=== PATIENT | male | born 1980 | race Caucasian/White ===

== ENCOUNTER 2018-12-05 13:19 | Observation (INO) | payer SELFPAY ==
[~2018-12-05] VITALS: Ht 203.2 cm; Wt 150.0 kg
[2018-12-05] MEDS ORDERED: ELIQUIS5 MG PO (13:35)
[2018-12-05] MEDS ORDERED: ISOSORBIDE MONO30 M1 PO (13:35)
[2018-12-05] MEDS ORDERED: ASPIRIN81 MG PO (13:35)
[2018-12-05] MEDS ORDERED: PLAVIX75 MG PO (13:35)
[2018-12-05] MEDS ORDERED: LIPITOR40 MG PO (13:36)
[2018-12-05] MEDS ORDERED: FERROUS SULFAT325 MG PO (13:36)
[2018-12-05] MEDS ORDERED: ZESTRIL20 MG PO (13:36)
[2018-12-05] MEDS ORDERED: AMIODARONE HCL200 MG PO (13:36)
[2018-12-05] MEDS ORDERED: ATIVAN2 MG PO (13:37)
[2018-12-05] MEDS ORDERED: TOPROL XL100 MG PO (13:37)
[2018-12-05] MEDS ORDERED: ZANAFLEX4 MG PO (13:38)
[2018-12-05] MEDS ORDERED: ROXICODONE30 MG PO (13:38)
[2018-12-05] MEDS ORDERED: AMBIEN10 MG PO (13:39)
[2018-12-05] MEDS ORDERED: FENTANYL PATCH (13:39)
[2018-12-05] MEDS ORDERED: MULTI-DAY VITAM1 TAB PO (13:40)
[2018-12-05] MEDS ORDERED: COLACE100 MG PO (13:40)
[2018-12-05] MEDS ORDERED: NITROQUICK0.4 MG SL (13:40)
[2018-12-05 14:16] VITALS: BP 128/78
[2018-12-05 14:22] LABS: BASOPHILS 0.4 % (0-2); EOSINOPHILS 1.1 % (0-7); HEMATOCRIT 32.3 % (42.0-54.0); HEMOGLOBIN 10.1 g/dL (13.5-17.5); IMMATURE GRANULOCYTES 0.2 % (0-5); LYMPHOCYTES 18.8 % (15-50); MCHC 31.3 g/dL (31.0-37.0); MCV 83.2 fL (80.0-100.0); MEAN PLATELET VOLUME 10.5 fL (7.4-10.4); MONOCYTES 5.9 % (2-11); NEUTROPHILS 73.6 % (40-80); PLATELET COUNT 224 10x3/uL (130-400); RBC 3.88 10x6/uL (4.20-6.10); RDW 14.7 % (11.5-14.5); WBC 4.7 10x3/uL (4.8-10.8)
[2018-12-05 14:23] LABS: APTT 32.1 SECONDS (22.8-39.4); INR 1.28 (0.85-1.17); PROTIME 15.4 SECONDS (11.6-15.0)
[2018-12-05 14:24] LABS: D-DIMER-QUANTITATIVE < 0.27 ug/mLFEU (0.20-0.54)
[2018-12-05 14:35] LABS: ALBUMIN 3.3 g/dL (3.4-5.0); ALKALINE PHOSPHATASE 67 U/L (46-116); ALT (SGPT) 16 U/L (10-68); BILIRUBIN - TOTAL 0.43 mg/dL (0.2-1.3); CALC OSMOLALITY 288 mosm/kg (275-300); CALCIUM 8.3 mg/dL (8.5-10.1); CARBON DIOXIDE 26.8 mmol/L (21.0-32.0); CHLORIDE - SERUM 106 mmol/L (98-107); CREATININE - SERUM 1.1 mg/dL (0.6-1.3); GLUCOSE 99 mg/dL (74-106); POTASSIUM - SERUM 4.2 mmol/L (3.5-5.1); PROTEIN - SERUM 6.5 g/dL (6.4-8.2); SODIUM 144 mmol/L (136-145); UREA NITROGEN 18 mg/dL (7-18); eGFR NON AFRICAN AMERICAN 79 mL/min (90-120)
[2018-12-05 14:50] LABS: CKMB 0.9 U/L (0.0-3.6)
--- NOTE | 2018-12-05 15:10 | NUR ---
PT STABLE, CALL LIGHT WITHIN REACH, DENIES NEEDS, WILL CONTINUE TO MONITOR. PT WANTED TO WAIT ON BENEDRYL AT THIS TIME
[2018-12-05 15:11] LABS: TROPONIN-I 0.544 ng/mL (0.000-0.060)
--- NOTE | 2018-12-05 15:12 | NUR ---
CRITICAL LAB CALLED [facility] 0.544 DR HALL AWARE
[2018-12-05 15:20] VITALS: BP 127/74
--- NOTE | 2018-12-05 15:44 | NUR ---
CORE DRILLER CALLED TO HAVE ED PREP PATIENT FOR CATH. DISCUSSED WITH PATIENT. HE IS REFUSING AT THIS TIME. CORE DRILLER AWARE. DR HALL SPEAKING WITH PATIENT AT THIS TIME
[2018-12-05 17:30] VITALS: BP 129/77
--- NOTE | 2018-12-05 18:07 | NUR ---
PER DR HALL, DR PINZON HAS BEEN CALLED AND OK TO CONTINUE ALL HOME MEDS. PT REQUESTING HIS HOME PAIN MEDICATION AT THIS TIME. FLOOR TO REVIEW HOME MED LIST AND ADD. AT THIS TIME DR PINZON OK TO GIVE PATIENT HOME PAIN MEDS. PT ALSO NPO AFTER MIDNIGHT, CATH TO BE DONE TOMORROW. CHARGE NURSE AND ED PROGRESSIVE CARE MANAGER AWARE OF THE CONVERSATION DR PINZON AND ISABEL HAVE HAD
[2018-12-05 18:31] LABS: CKMB 0.7 U/L (0.0-3.6); CREATINE KINASE 54 UL (21-232)
[2018-12-05 19:15] VITALS: BP 132/75
[2018-12-05 20:00] VITALS: BP 121/73
--- NOTE | 2018-12-05 20:14 | NUR ---
RECEIVED PATIENT FROM ER VIA WHEELCHAIR. PATIENT IS ALERT AND ORIENTED RESTING COMFORTABLY. RESPIRATIONS ARE EVEN AND UNLABORED. NO S/S OF DISTRESS. NO C/O PAIN. DENIES NEEDS AT THIS TIME. CALL LIGHT WITHIN REACH. WILL CPOC.
[2018-12-05 23:34] LABS: CREATINE KINASE 59 UL (21-232)
[2018-12-05 23:37] LABS: TROPONIN-I 0.451 ng/mL (0.000-0.060)
[2018-12-06 01:52] VITALS: BP 121/73; Ht 203.2 cm; Wt 150.0 kg
--- NOTE | 2018-12-06 02:57 | NUR ---
PATIENT ASKED WHEN HIS HEART CATH WAS GOING TO BE IN THE AM. PATIENT SAID "IF IT IS BEFORE NOON HE WILL SIGN OUT AMA."
--- NOTE | 2018-12-06 05:14 | NUR ---
NO C/O OF CHEST PAIN SINCE ARRIVING TO FLOOR. PATIENT RESTING COMFORTABLY IN BED. NO S/S OF DISTRESS. RESPIRATIONS ARE EVEN AND UNLABORED. CALL LIGHT WITHIN REACH. WILL CPOC.
[2018-12-06 07:50] LABS: CREATINE KINASE 46 UL (21-232)
--- NOTE | 2018-12-06 08:10 | NUR ---
UPON RECEIVING THE PT, [facility] NURSE REPORTED THAT THE PT HAD STATED THAT HE WAS LEAVING AMA R/T NOT RECEIVING PAIN MEDICATION BECAUSE THE COMPUTER SYSTEM WAS DOWN. [facility] RN COURTNEY NOTIFED ME OF THE PATIENTS HISTORY AND SECURITY ISSUES WITH HOW THE PATIENT WAS STALKING SOME OF THE NURSES ON THE FLOOR AND MESSAGING THEIR HUSBANDS ON SOCIAL MEDIA. PT OVERHEARD THE CONVERSATION AND BECAME ANGRY, COMING AT ME STATING THAT HE WAS LEAVING AND TO GET THE AMA PAPERWORK. LEFT THE ROOM TO RETRIEVE PAPERS, CALLED DR.ST SCHULTZ TO NOTIFY HIM OF THE INCIDENT. WHEN RETURNING TO THE ROOM, I FOUND THAT THE PATIENT HAD LEFT, LEAVING HIS TELEMETRY AND THE OLD PIV LEFT BEHIND. PT DID NOT SIGN AMA FORM. PIV CATHETER TIP WAS FULLY INTACT. SILVERER AND CHARGE NURSE NOTIFIED.
[2018-12-06 08:14] LABS: TROPONIN-I 0.354 ng/mL (0.000-0.060)
[2018-12-06 08:39] VITALS: BP 156/86
--- NOTE | 2018-12-06 13:05 | MORECARE ---
CASE MANAGEMENT DISCHARGE SUMMARY PATIENT: ANGELINA PARHAM UNIT: [id number] ADM DATE: 12/05/18 AGE: 38 : [birth year] SEX: M ROOM/BED: D.2119 AUTHOR: VIKY JONES PHYSICIAN: REFERRING PHYSICIAN: FELI YBARRA MD DATE OF SERVICE: 12/06/18 Discharge Plan Patient Name: ANGELINA PARHAM [facility] [facility] 1980 Planned Disposition: Left Against Medical Advice Anticipated Discharge Date: 12/06/18 Discharge Date: 12/06/2018 Expected LOS: 1 Initial Reviewer: [email or web address] Initial Review Date: 12/06/2018 Generated: 12/06/18 2:05 pm Patient Name: ANGELINA PARHAM Page [id number] at 1305 All edits/amendments must be made on the electronic document DICTATION DATE: 12/06/18 1305 BAND STRAIGHTENER: PRECIOUS 12/06/18 1305 RPT#: [id number] DC DATE:12/06/18 STATUS: DIS IN [facility] [address] [facility] [place] [address] END OF REPORT
--- NOTE | 2018-12-14 12:54 | HP ---
PATIENT: ANGELINA PARHAM MEDICAL RECORD: [id number] ACCOUNT: [id number] LOCATION:[address] : [birth year] ADMISSION DATE: 12/05/18 PCP: No PCP HISTORY AND PHYSICAL EXAMINATION HISTORY: A 38-year-old gentleman from [place] with history of coronary artery disease, status post NSTEMI. At that point in time, he had periprocedure complications including hematoma, requiring blood transfusion as well as required chest compression and cardioversion. He has done fairly well. He has a history of atrial fibrillation, on Eliquis therapy. He had elevated CHADS-VASc score. He recently underwent a nuclear stress test that showed reversible ischemia. Unfortunately, he had to leave town due to family emergency. He had onset of rest symptomology today. Troponins are elevated. He is being placed for observation and therapy. PAST MEDICAL HISTORY: Includes; 1. History of hypertension. 2. Hyperlipidemia. 3. Cardiomyopathy. 4. Coronary artery disease. ALLERGIES: TORADOL AND HEPARIN, WHICH CAUSES HIT. MEDICATIONS: Zanaflex 8 mg p.o. q. 6 p.r.n., Eliquis 5 mg b.i.d., Plavix 75 daily, iron supplementation 325 t.i.d., amiodarone 200 daily, atorvastatin 40 at bedtime, isosorbide 30 daily, lisinopril 20 daily, metoprolol 100 b.i.d., aspirin 81 daily, Ativan 2 mg q. 6 p.r.n., Ambien 10 mg p.o. at bedtime, oxycodone 30 mg q. 4 p.r.n., and fentanyl patch. SOCIAL HISTORY: He is a nonsmoker. 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 REVIEW OF SYSTEMS: The patient reports easy bruising but reports no swollen glands. The patient reports no fever, no night sweats, no significant weight gain, no significant weight loss. No significant exercise tolerance. The patient reports no dry eyes, no irritation, no vision change. Patient reports no difficulty hearing and no ear pain. Patient reports no frequent nose bleeds or nose and sinus problems. Patient reports on arm pain on exertion. No shortness of breath while lying down. No history of heart murmur. Patient reports no cough, no wheezing or coughing up blood. Patient reports no abdominal pain, no vomiting. Normal appetite. No diarrhea and not vomiting blood. No nausea and no constipation. Patient reports no incontinence. No difficulty urinating. No hematuria. No increased frequency. Patient reports no muscle aches. No weakness, no arthralgias, no back pain. No swelling of the extremities. Patient reports no abnormal mole, no jaundice, no rashes. Reports no loss of consciousness. No weakness and no numbness. No seizures, dizziness, or headaches. The patient reports no depression, no sleep disturbance, feeling safe in a relationship and no alcohol abuse. Patient reports on fatigue. Reports no runny nose or sinus pressure. No itching, no hives, and no frequent sneezing. PHYSICAL EXAMINATION: GENERAL: Pleasant gentleman, in no acute distress, somewhat apprehensive. VITAL SIGNS: Blood pressure 139/87. Pulse 78 and regular. HEENT: Normocephalic and atraumatic. HISTORY AND PHYSICAL [id number] ANGELINA PARHAM NECK: No JVD or bruit. HEART: Regular. II/ systolic ejection murmur. LUNGS: Good air excursion. ABDOMEN: Soft and nontender. EXTREMITIES: Pulses 2+ with no edema. DIAGNOSTIC DATA: ECG shows no acute ST-T segment changes. IMPRESSION: Acute coronary syndrome/NSTEMI. I had a long discussion with the patient. Pain has actually resolved at this point. He will need diagnostic angiography and obviously Angiomax instead of heparin. This we will plan for tomorrow giving Eliquis time to wear off. Again, discussed risks, benefits, and details with the patient. TRANSINT:[id number] Voice Confirmation ID: [id number] DOCUMENT ID: [id number] FELI YBARRA MD at 1254 CC: [id number] DICTATION DATE: 12/05/18 170 FITNESS/WELLNESS DIRECTOR: 12/05/18 182 DIS IN 12/06/18 [place] [id number] [place] [id number]
== END 2018-12-06 08:48 | disposition left against medical advice (07) ==
LOC: D.ER 13:19 → D.M2 16:01 → D.EDHOLD 16:01 → D.M2 16:01 → OBSVTIME 17:00 → D.M2 18:24
PROVIDERS: Family Medicine; ADMIT Internal Medicine Interventional Cardiology
DX: I21.4 Non-ST elevation (NSTEMI) myocardial infarction (principal); I25.10 Atherosclerotic heart disease of native coronary artery without angina pectoris; I10 Essential (primary) hypertension; E78.5 Hyperlipidemia, unspecified; I42.9 Cardiomyopathy, unspecified